=== PATIENT | female | born 1950 | race Caucasian/White ===

== ENCOUNTER 2022-10-03 14:01 | Inpatient (IN) | payer MEDICAID, MEDICARE ==
[~2022-10-03] VITALS: Ht 162.6 cm; Wt 65.3 kg
[~2022-10-03 14:01] MED LIST: CLON1TAB1 PO; DEPER500 PO; OXYB5TAB43 PO; RISP2TAB PO; [UNRECOGNIZED DRUG - CODE] PO
[2022-10-03 14:51] VITALS: BP 110/50
[2022-10-03] MEDS ORDERED: ACETAMINOPHEN 325 MG TAB PO ONE (16:20)
--- NOTE | 2022-10-03 17:36 | NUR ---
TO ER BED 6 FROM XRAY
--- NOTE | 2022-10-03 17:40 | NUR ---
72YO FEMALE PT BIBA [facility] C/O HIP PAIN. PER [facility], PT FELL FROM BE -LOC-HEAD INJURY. MILD SWELLING NOTED IN R HIP/LEG, TENDER TO TOUCH. PT AAOX3. DENIES CHEST PAIN , N/V/D, FEVER OR CHILLS. ON TRAVEL OT. HX:SCHIZO ALLERGIES" IBUPROFEN
[2022-10-03] MEDS ORDERED: MORPHINE SULFATE 4 MG/ML SYR IVP ONE (17:50)
[2022-10-03 18:36] LABS: BASOPHILS % (AUTO) 0.1 % (0.0-2.0); HEMATOCRIT 25.9 % (36-48); HEMOGLOBIN 8.6 g/dL (12.0-16.0); LYMPHOCYTES # (AUTO) 1.3 K/uL (2.5-16.5); LYMPHOCYTES % (AUTO) 8.9 % (20.5-51.1); MEAN CORPUSCULAR HEMOGLOBIN 33 pg (27-31); MEAN CORPUSCULAR HGB CONC 33 g/dL (33-37); MEAN CORPUSCULAR VOLUME 99.2 fL (80-94); MONOCYTES # (AUTO) 1.8 K/uL (0.8-1.0); MONOCYTES % (AUTO) 12.8 % (1.7-9.3); NEUTROPHILS # (AUTO) 11.2 K/uL (1.8-7.7); NEUTROPHILS % (AUTO) 78.2 % (42.2-75.2); PLATELET COUNT (AUTO) 162 K/uL (140-450); RED BLOOD CELL COUNT(AUTO) 2.61 MIL/uL (4.20-5.40); RED CELL DISTRIBUTION WIDTH 14.2 % (11.6-13.7); WHITE BLOOD COUNT (AUTO) 14.3 K/uL (4.8-10.8)
[2022-10-03 18:53] LABS: ANION GAP 14.3 (8-16); CHLORIDE 105 mmol/L (98-107); GLUCOSE 113 mg/dL (74-106); POTASSIUM 4.3 mmol/L (3.5-5.1); SODIUM SERUM 140 mmol/L (136-145); UREA NITROGEN, BLOOD 33 mg/dL (7-18)
--- NOTE | 2022-10-03 19:30 | NUR ---
REPORT GIVEN TO ENE MACIAS. TRANSFER OF CARE AT THIS TIME
[2022-10-03] MEDS ORDERED: ONDANSETRON 4 MG/2 ML VIAL IVP PRN (21:05)
[2022-10-03] MEDS ORDERED: POTASSIUM CHLORIDE 10 MEQ TABER PO PRN (21:05)
[2022-10-03] MEDS ORDERED: MAGNESIUM OXIDE 400 MG TAB PO PRN (21:05)
[2022-10-03] MEDS: NACL 0.9% 1,000 ML IV SCH (22:07)
[2022-10-03] MEDS ORDERED: NACL 0.9% 500 ML IV SCH (23:05)
[2022-10-03] MEDS ORDERED: METOPROLOL 5 MG/5 ML VIAL IV ONE (23:05)
--- NOTE | 2022-10-03 23:07 | NUR ---
SPOKE TO Natalie HEATON FOR UPDATE ON PT CONDITION. PT HR WAS 146 EKG WAS OBTAINED AND A FIB RVR AT RATE OF [address] GAVE VERBAL ORDERS FOR LOPRESSOR 5MG IVP ONE TIME. AND 500CC BOLUS OF 0.9% NS ONE TIME.
[2022-10-03] MEDS ORDERED: METOPROLOL 5 MG/5 ML VIAL ONE (23:10)
[2022-10-04] MEDS: HYDROcodone/APAP 5/325 MG 1 TAB TAB PO PRN (01:06)
--- NOTE | 2022-10-04 07:23 | NUR ---
Report recieved from COLLEEN Sarmiento for transfer of care.
--- NOTE | 2022-10-04 07:24 | NUR ---
HAND OFF CARE GIVEN TO COLLEEN SCHWAB
[2022-10-04] MEDS ORDERED: DIVA500E1 PO (07:58)
[2022-10-04] MEDS ORDERED: OLAN20TA1 SL (07:58)
[2022-10-04] MEDS ORDERED: OLAN20TA1 PO (07:58)
[2022-10-04] MEDS: MORPHINE SULFATE 4 MG/ML SYR IVP PRN ×2 (08:14→20:44)
--- NOTE | 2022-10-04 08:17 | NUR ---
Patient will be admitted to care of Dr. Sawyer. Admited to Med-Surg. Will go to room 109-B. Belongings list completed. Report to COLLEEN Lyman.
--- NOTE | 2022-10-04 08:46 | NUR ---
RECEIVE REPORT FROM ER NURSE THAT PATIENT COME FROM [facility] W/ S/P FALL, PAIN AND EDEMA AT R.HIP; DIAGNOSIS W/ R. HIP FRACTURE. PATIENT HAS HX OF SCHIZOPHRENIA, ALLERGY TO IBUPROFEN, FULL CODE. AT THIS TIME NON-AMBULATORY, ALERT X0, ON ROOM AIR, NPO EXCEPT MED FOR POSSIBLE SURGERY. PIV AT L. FOREARM 22 INFUSING NS @80ML/HR. NO ACUTE DISTRESS EXCEPT THROW UP ABOUT 5ML LIGHT GREENISH SUBSTANCE. VITAL WITHIN PATIENT'S BASELINE (T-P-R: 98.0-78-18; 02SAT: 97%, BP: 115/34). WILL CONTINUE TO MONITOR
--- NOTE | 2022-10-04 08:55 | NUR ---
The patient's care was reviewed and supervised by Cubero 05 GUILHERME, RN.
[2022-10-04 09:45] VITALS: BP 113/34
[2022-10-04] MEDS: DIVALPROEX 500 MG TABEC PO SCH ×2 (09:57→20:43)
[2022-10-04] MEDS: DOCUSATE SODIUM 100 MG GELCAP PO SCH (09:58)
[2022-10-04] MEDS: NACL 0.9% 1,000 ML IV SCH ×2 (09:58→22:05)
--- NOTE | 2022-10-04 11:03 | NUR ---
PATIENT HAS BEEN SCREENED AND CATEGORIZED LOW NUTRITION RISK. PATIENT WILL BE SEEN WITHIN 7 DAYS OF ADMISSION. 10/10/[address]
--- NOTE | 2022-10-04 15:42 | NUR ---
DC PLANNING SW ATTEMPTED TO MEET WITH PT AT BEDSIDE HOWEVER, PT HEAVILY SLEEPING. 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 DRE, IDENTIFIES HERSELF PT'S EMERGENCY CONTACT, PT IS REPORTED TO NOT HAVE ANY ACTIVE FAMILY INVOLVEMENT. 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 DRE REPORTS CONFUSION IS NEW AND ONSET. PT IS REPORTED TO BE INDEPENDENT IN ALL ACTIVITIES AND DENIES USE OF DME. PT COMPLETES ALL ADLS INDEPENDENTLY. PT IS HOWEVER, REPORTED TO BE INCONTINENT AND HAS BEEN WORKING WITH PCP IN OBTAIN REFERRAL WITH UROLOGIST. PT LAST VISIT WITH PCP IN . PT IS REPORTED TO MEET WITH PCP REGULARLY. PT IS REPORTED TO BE MEDICATION COMPLIANT AND IS REPORTED TO RECEIVE MEDICATION FROM [facility] IN [place], WHEN NEEDED. PT HAS HX OF SCHIZOPHRENIA AND MEETS WITH PSYCHIATRIST, DR. MIX 1X MONTHLY. DRE DENIES HX OF HH, SNF, DIALYSIS TX, AND DIABETES.DRE REPORTS TENTATIVE PLAN IS FOR PT TO RETURN HOME UNLESS PHYSICIAN HAS ALTERNATIVE RECOMMENDATION OF CARE FOR PT. Addendum: 10/04/22 at 1545 by Ezequiel TRAMMELL Amended: Links added.
--- NOTE | 2022-10-04 15:58 | NUR ---
P.T. NOTES HOLD P.T. EVAL, AWAIT POST OP ORDER.
[2022-10-04] MEDS ORDERED: HYDROmorphone 1 MG/ML AMP IVP PRN (16:40)
[2022-10-04] MEDS ORDERED: ONDANSETRON 4 MG/2 ML VIAL IVP PRN (16:40)
[2022-10-04] MEDS ORDERED: ACETAMINOPHEN 100 ML IV ONE (16:43)
[2022-10-04] MEDS ORDERED: BUPIVACAINE-MPF 0.25% 30 ML VIAL INJ ONE (16:45)
[2022-10-04] MEDS ORDERED: ACETAMINOPHEN 10 MG/ML 100 ML IV ONE (17:19)
[2022-10-04] MEDS ORDERED: ONDANSETRON 4 MG/2 ML VIAL ONE (17:19)
[2022-10-04] MEDS ORDERED: ceFAZolin 2,000 MG VIAL ONE (17:19)
[2022-10-04] MEDS ORDERED: PROPOFOL 200 MG/20 ML VIAL IV ONE ×2 (17:19→17:31)
[2022-10-04] MEDS ORDERED: DEXAMETHASONE 4 MG/ML VIAL ONE (17:19)
[2022-10-04] MEDS ORDERED: fentaNYL citrate 0.05 MG/ML - 50mL vial IV ONE (17:19)
[2022-10-04] MEDS ORDERED: DESFLURANE 240 ML BTL INH ONE (17:19)
[2022-10-04] MEDS ORDERED: fentaNYL citrate 0.05 MG/ML VIAL ONE (17:29)
[2022-10-04] MEDS ORDERED: ceFAZolin 1,000 MG VIAL ONE ×2 (17:31)
--- NOTE | 2022-10-04 19:46 | NUR ---
ENDORSE PATIENT TO PM SHIFT NURSE WHILE PATIENT STILL IN OR ROOM.
--- NOTE | 2022-10-04 20:01 | NUR ---
RECEIVED FROM OR IV OUT PT DISORIENTED AND SOMEWHAT COOPERATIVE DRESSING AT RIGHT LEG INTACT PT ENDORSES PAIN MORPHINE GIVEN ORDERED 24 GAUGE STARTED AT RIGHT FORE ARM
[2022-10-04] MEDS: OLANZapine 5 MG TAB PO SCH (20:43)
--- NOTE | 2022-10-05 00:45 | NUR ---
UPON ASSESSMENT AND VITAL SIGNS PT IV OUT 24 GAUGE STARTED AT RIGHT WRIST WRAPPED PT YELLING ENDORSING HER LEG HURTS MORPHINE GIVEN ORDERED
[2022-10-05] MEDS: MORPHINE SULFATE 4 MG/ML SYR IVP PRN ×2 (00:46→06:43)
[2022-10-05 01:04] VITALS: BP 111/74
[2022-10-05 07:36] LABS: ALBUMIN 2.1 g/dL (3.4-5.0); ANION GAP 13.2 (8-16); ASPARTATE AMINOTRANSFERASE 28 U/L (15-37); CARBON DIOXIDE 27.3 mmol/L (21-32); CHLORIDE 113 mmol/L (98-107); CREATININE 0.6 mg/dL (0.6-1.3); GLUCOSE 97 mg/dL (74-106); POTASSIUM 4.5 mmol/L (3.5-5.1); SODIUM SERUM 149 mmol/L (136-145); TOTAL BILIRUBIN 0.3 mg/dL (0.0-1.0); UREA NITROGEN, BLOOD 25 mg/dL (7-18)
[2022-10-05 08:00] VITALS: BP 144/75
[2022-10-05] MEDS: DOCUSATE SODIUM 100 MG GELCAP PO SCH (08:38)
[2022-10-05] MEDS: DIVALPROEX 500 MG TABEC PO SCH ×2 (08:40→20:25)
[2022-10-05] MEDS: NACL 0.9% 1,000 ML IV SCH ×2 (10:41→23:05)
--- NOTE | 2022-10-05 12:50 | NUR ---
SURGEON ROUNDED ON PT AND PER SURGEON PT PULLED ORGINAL HIP DRESSING AND SURGEON ASKED NURSING TO REIFORCE HIP DRESSING WITH A TEGADERM NOTED AND CARRIED OUT PT REMAINS STABLE ALL NEEDS ANTICIPATED IV INTACT AND INFUSING WELL CARE ENDORSED TO ONCOMING RN
--- NOTE | 2022-10-05 15:18 | NUR ---
NURSES NOTE PATIENT A/OX2 , VSS , SKIN INTACT , ON IV FLUID 80CC/H , ON BLAND DIET SOT DIET , ON BED REST WITH [place] CATHETER STILL UNDER OBSERVE .
[2022-10-05 17:23] VITALS: BP 120/78
--- NOTE | 2022-10-05 18:23 | NUR ---
NURSES NOTE : PATIENT A/OX2 , VSS , ON SOFT FOOD DIET , SKIN INTACT EXCEPT THE INCISION , WITH [place] CATHETER , ON ROOM AIR , BED REST , LOWER EXTREMITY WEAKNESS , NO COMPLAIN AT THIS TIME , ON IV FLUID N/S 0.9% RUINING 80CC/H , NO BOWEL MOVEMENT , FOR OBSERVE.
[2022-10-05] MEDS ORDERED: APIX2.5 PO (19:04)
[2022-10-05] MEDS ORDERED: HYDROcodone/APAP 10/325 MG 1 TAB TAB PO PRN (19:05)
[2022-10-05] MEDS ORDERED: ACET-9525 PO (19:08)
--- NOTE | 2022-10-05 19:30 | NUR ---
Pt. in bed, confused and yelling out. No resp. distress, has pain to her right hip area, dressing in place.
--- NOTE | 2022-10-05 19:33 | NUR ---
REPORT GIVE FOR NIGHT NURSE ALL HER QUESTION ANSWER
[2022-10-05] MEDS: ACETAMINOPHEN 325 MG TAB PO PRN (20:24)
[2022-10-05] MEDS: OLANZapine 5 MG TAB PO SCH (20:24)
[2022-10-05] MEDS: APIXABAN 2.5 MG TAB PO SCH (20:33)
[2022-10-05 21:11] VITALS: BP 135/63
[2022-10-05] MEDS: HYDROcodone/APAP 5/325 MG 1 TAB TAB PO PRN (21:30)
--- NOTE | 2022-10-05 21:30 | NUR ---
Pt. medicated with pain meds as rx'd, given her pm meds. vss, will monitor. Refusing to be turned.
--- NOTE | 2022-10-05 23:00 | NUR ---
Pt. sleeping quietly, will monitor. Call light in reach
[2022-10-06] MEDS: ACETAMINOPHEN 325 MG TAB PO PRN ×2 (03:54→18:58)
--- NOTE | 2022-10-06 03:58 | NUR ---
Pt. pulled out iv, refusing to allow new start of iv. Pt. is drinking adequate fluids.
[2022-10-06 05:01] VITALS: BP 100/53
--- NOTE | 2022-10-06 06:10 | NUR ---
Pt. needs met this shift, vss, slept. well, medicated for pain prn with good results, call light in reach. Dressing to right hip in place
--- NOTE | 2022-10-06 07:14 | NUR ---
RECEIVED PT FROM WEAPONS OFFICER NURSE BARBARA FOR CONTINUITY OF CARE. PT AWAKE IN BED. RESPIRATIONS EVEN AND UNLABORED ON RA. NO DISTRESS NOTED. DENIES PAIN AT THIS TIME. WITH [place] CATHETER IN PLACE, INTACT AND DRAINING WELL. NO IV SITE. PER RN MD IS AWARE. PT IS DRINKING WELL. WITH RIGHT HIP INCISION COVERED WITH DRESSING. CALL LIGHT WITHIN REACH. SAFETY PRECAUTIONS IN PLACE.
[2022-10-06 07:25] LABS: ALBUMIN 2.1 g/dL (3.4-5.0); ANION GAP 8.7 (8-16); ASPARTATE AMINOTRANSFERASE 21 U/L (15-37); CARBON DIOXIDE 25.3 mmol/L (21-32); CHLORIDE 112 mmol/L (98-107); CREATININE 0.6 mg/dL (0.6-1.3); GLUCOSE 112 mg/dL (74-106); SODIUM SERUM 142 mmol/L (136-145); TOTAL BILIRUBIN 0.5 mg/dL (0.0-1.0); UREA NITROGEN, BLOOD 20 mg/dL (7-18)
[2022-10-06 08:00] VITALS: BP 136/98
[2022-10-06] MEDS: DIVALPROEX 500 MG TABEC PO SCH (08:43)
[2022-10-06] MEDS: DOCUSATE SODIUM 100 MG GELCAP PO SCH (08:43)
[2022-10-06] MEDS: APIXABAN 2.5 MG TAB PO SCH (08:45)
--- NOTE | 2022-10-06 08:58 | NUR ---
ADMINISTERED SCHEDULED MEDS. PT TOLERATED WELL. NON-ADMIT IVF. NO IV SITE. PT REFUSED. RISKS AND BENEFITS EXPLAINED BUT PT STILL REFUSED HAVING AN IV LINE INSERTED. PT DRINKING WELL.
[2022-10-06] MEDS: NACL 0.9% 1,000 ML IV SCH (11:35)
--- NOTE | 2022-10-06 14:11 | NUR ---
DC PLANNING: CALLED YVETTE HARPER WITH [facility] DISCUSSED THE DC PLAN TO SNF. PER [facility] STILL WORKING ON IT AND WILL CALL US BACK WHEN SNF AVAILABLE. CM TO FOLLOW Addendum: 10/06/22 at 1509 by Glenys Lewis RN DC PLANNING: CALLED YVETTE HARPER WITH [facility] AND [facility]WAIT[facility] FOR ACCEPTING FACILITY. CM TO FOLLOW Addendum: 10/06/22 at 1520 by Glenys Lewis RN DC PLANNING: RECEIVED A CALL FROM YVETTE HARPER WITH [facility] STATED [facility] ACCEPTED PATIENT CAN GO TO ROOM 35A # TO GIVE REPORT [phone] [facility] ARRANGED TRANSPORT WITH [facility] PASTE MIXER LIQUID TIME 7-8PM NOTIFIED ANGELIQUE DIAL CM TO FOLLOW
--- NOTE | 2022-10-06 14:48 | NUR ---
ASSISTED EXHIBIT DESIGNER IN CLEANING AND CHANGING PT'S DIAPER AND BED SHEETS. PT TOLERATED WELL. PT REMAINED CLEAN AND DRY. DRAINED 650CC OF URINE FROM FC.
[2022-10-06 15:54] VITALS: BP 136/98
[2022-10-06 16:00] VITALS: BP 132/89
--- NOTE | 2022-10-06 16:05 | NUR ---
RETURNED MELA THOMAS CALL. PER MELA PT FOR DC TO [facility] RM 35A. ESTIMATED TIME OF PICK-UP 7-8PM. PT MADE AWARE. PT VERBALIZED UNDERSTANDING. COVID AG TEST SPECIMEN COLLECTED AND SENT TO LAB.
--- NOTE | 2022-10-06 17:19 | NUR ---
GAVE REPORT TO MINERVA OF [facility]. DC PAPERS DISCUSSED WITH THE PT. PT VERBALIZED UNDERSTANDING.
--- NOTE | 2022-10-06 19:00 | NUR ---
PT COMPLAINING OF HIP PAIN 01/05. PT REQUESTED TYLENOL. PRN PAIN MED ADMINISTERED.
--- NOTE | 2022-10-06 19:12 | NUR ---
ENDORSED PT TO POPCORN VENDOR NURSE ALFA FOR CONTINUITY OF CARE. ALL NEEDS MET THROUGHOUT SHIFT. PT IS STABLE.
--- NOTE | 2022-10-06 20:32 | NUR ---
PT WAS READY TO TRANSFER TO [facility].REPORT GIVEN BY AM NURSE .TRANSPORT CAME AND PICKED PT UP IN STABLE CONDITION.D/C'D C[place] CATH.BEFORE TRANSFER.
== END 2022-10-06 20:30 | DRG 308 ==
LOC: MED 14:01 → MTU 21:08
PROVIDERS: ADMIT Student in an Organized Health Care Education/Training Program; ATTEND Student in an Organized Health Care Education/Training Program
PROC: 0QS634Z Reposition Right Upper Femur with Internal Fixation Device, Percutaneous Approach (ICD-10-PCS; principal; 2022-10-04 16:30)
DX: S72.141A Displaced intertrochanteric fracture of right femur, initial encounter for closed fracture (principal); E43 Unspecified severe protein-calorie malnutrition; D64.9 Anemia, unspecified; W18.39XA Other fall on same level, initial encounter; Z20.822 Contact with and (suspected) exposure to COVID-19; F20.9 Schizophrenia, unspecified; Z88.6 Allergy status to analgesic agent; Y93.89 Activity, other specified; Y92.89 Other specified places as the place of occurrence of the external cause; Y99.8 Other external cause status; M21.00 Valgus deformity, not elsewhere classified, unspecified site; M75.51 Bursitis of right shoulder; Z68.24 Body mass index [BMI] 24.0-24.9, adult
CPT/HCPCS: 36415; 71045; 72170; 72192; 73502; 76001; 80048; 80053; 85025; 87081; 96374; 96375; 97112; 97163-GP; 99285; C1713; C1769; J0690; J1100; J1644; J2270; J2405; J2704; J3010; J3490; Q0092